=== PATIENT | female | born 1990 | race African-American/Black ===

== ENCOUNTER 2016-10-13 13:26 | Emergency (ER) | payer SELFPAY ==
[2016-10-13 13:36] VITALS: BMI 42.3
[2016-10-13 13:37] VITALS: TEMP 98.3
--- NOTE | 2016-10-13 13:38 | PDOC ---
History of Present Illness - General Stated Complaint: SYNCOPY Time Seen by Provider: 10/13/16 13:30 History Source: Patient - History of Present Illness Timing/Duration: other (this am) Severity: severe Associated Symptoms: reports: headaches. denies: cough, diaphoresis, fever/ chills, loss of appetite, nausea/vomiting, shortness of breath Past History - Past Medical History Allergies/Adverse Reactions: Allergies Allergy/AdvReac Type Severity Reaction Status Date / Time GUARDASIL Allergy Intermediate Swelling Uncoded 10/13/16 13:36 Review of Systems - Review of Systems Constitutional: No: Chills, Fever HEENTM: No: Blurred Vision Respiratory: No: Shortness of Breath Cardiac (ROS): Yes: Lightheadedness. No: Chest Pain, Palpitations ABD/GI: No: Nausea, Vomiting *Physical Exam - Physical Exam General Appearance: Yes: Appropriately Dressed. No: Apparent Distress HEENT: positive: Normal Voice. negative: Scleral Icterus (R), Scleral Icterus ( L) Neck: positive: Supple Respiratory/Chest: positive: Lungs Clear, Normal Breath Sounds. negative: Respiratory Distress Cardiovascular: positive: Regular Rate, S1, S2 Gastrointestinal/Abdominal: positive: Soft. negative: Tender Extremity: positive: Normal Inspection Integumentary: positive: Dry, Warm Neurologic: positive: Fully Oriented, Alert, Normal Mood/Affect Heart Score/ECG Review - ECG Intrepretation Comment:: 10/13/16 13:48 Twelve-lead EKG was performed and reviewed by me. There is normal sinus rhythm with a normal rate. The axis is normal. The intervals are normal. There are no ST or T wave abnormalities. Impression: Normal twelve-lead EKG ED Treatment Course - LABORATORY CBC & Chemistry Diagram: 10/13/16 14:25 10/13/16 14:25 Medical Decision Making - Medical Decision Making 10/13/16 13:36 26-year-old female, morbidly obese, with insulin-dependent diabetes, PCOS, migraines, here with dizziness with near syncope. Patient states while at her nephew's christening this morning and sitting down, she became lightheaded and felt like she was in a pass out, so came directly to the ED. Feels better now but reports a slight headache. No visual changes, nausea, vomiting, chest pain or shortness of breath. Patient admits that she did not anything to eat this a.m. See exam Near syncope Since improved Stable w/ unremarkable exam Possibly hypoglycemia in setting of IDDM and no po intake today, less likely cardiac or neuro, will r/o preg -FS -EKG -labs -IVF -reassess 10/13/16 15:037 Labs and EKG unremarkable. Pt remained stable in ED and feels well enough to go home. Instructed to make sure that she maintains adequate nutrition, especially in the setting of insulin use. Return precautions given. 10/13/16 15:37 *DC/Admit/Observation/Transfer Diagnosis at time of Disposition: Near syncope, Dizziness - Discharge Dispostion Disposition: HOME Condition at time of disposition: Improved - Patient Instructions Printed Discharge Instructions: DI for Syncope in Adults (Fainting) Additional Instructions: The cause of your symptoms are unclear, but possibly due to low blood sugar. Maintain adequate nutrition, especially since you are on insulin. If symptoms recur and/or worsen, return to ED immediately. Otherwise follow-up with your PMD
--- NOTE | 2016-10-13 14:03 | PDOC ---
*Physical Exam - Vital Signs Last Vital Signs Temp Pulse Resp BP Pulse Ox 98.3 F 87 18 117/84 99 10/13/16 13:28 10/13/16 13:28 10/13/16 13:28 10/13/16 13:28 10/13/16 13:28 ED Treatment Course - LABORATORY CBC & Chemistry Diagram: 10/13/16 14:25 10/13/16 14:25 Medical Decision Making - Medical Decision Making 10/13/16 14:02 Pt seen by the Advanced Practice Provider under my direct supervision Ancillary studies reviewed I agree with plan as outlined by the Advanced Practice Provider KATI Dial *DC/Admit/Observation/Transfer Diagnosis at time of Disposition: Near syncope, Dizziness - Discharge Dispostion Disposition: HOME Condition at time of disposition: Improved - Patient Instructions Printed Discharge Instructions: DI for Syncope in Adults (Fainting) Additional Instructions: The cause of your symptoms are unclear, but possibly due to low blood sugar. Maintain adequate nutrition, especially since you are on insulin. If symptoms recur and/or worsen, return to ED immediately. Otherwise follow-up with your PMD
[2016-10-13] MEDS ORDERED: SODIUM CHLORIDE 1,000 ML IV STA (14:18)
[2016-10-13 14:38] LABS: BASOPHIL 0.4 % (0-2.0); EOSINOPHIL 0.6 % (0-4.5); MCH 24.3 pg (25.7-33.7); MCHC 31.3 g/dl (32.0-36.0); MEAN CELL VOLUME 77.5 fl (80-96); MEAN PLT VOLUME 7.5 fl (7.5-11.1); NEUTROPHILS 69.2 % (42.8-82.8); PLATELET COUNT 373 K/MM3 (134-434); RDW 16.1 % (11.6-15.6); WHITE BLOOD COUNT 7.9 K/mm3 (4.0-10.0)
[2016-10-13 14:53] LABS: ALBUMIN 3.7 g/dl (3.4-5.0); ANION GAP 11 (8-16); BILIRUBIN,TOTAL 0.3 mg/dL (0.2-1.0); CALCIUM 8.8 mg/dL (8.5-10.1); CO2 23 mmol/L (21-32); CREATININE 0.9 mg/dL (0.55-1.02); GLUCOSE,RANDOM 87 mg/dL (74-106); SGOT/AST 11 U/L (15-37); SGPT/ALT 19 U/L (12-78); TOT PROT 7.7 g/dl (6.4-8.2)
[2016-10-13 14:54] LABS: ALK PHOS 73 U/L (45-117)
[2016-10-13 15:56] VITALS: BP 123/69; PULSE 90
--- NOTE | 2016-10-14 09:28 | EKG ---
Test Reason : Blood Pressure : / mmHG Vent. Rate : 092 BPM Atrial Rate : 092 BPM P-R Int : 156 ms QRS Dur : 090 ms QT Int : 348 ms P-R-T Axes : 051 035 027 degrees QTc Int : 430 ms NORMAL SINUS RHYTHM NORMAL ECG NO PREVIOUS ECGS AVAILABLE Confirmed by ISABEL HENDRICKSON MD ([id number]) on 10/14/2016 9:27:32 AM Referred By: Confirmed By:ISABEL HENDRICKSON MD
== END 2016-10-13 15:56 | disposition home or self-care (01) ==
LOC: JER 13:26
PROC: 3E0337Z Introduction of Electrolytic and Water Balance Substance into Peripheral Vein, Percutaneous Approach (ICD-10-PCS; principal; 2016-10-13)
DX: R55 Syncope and collapse (principal); R42 Dizziness and giddiness; E66.01 Morbid (severe) obesity due to excess calories; Z68.41 Body mass index [BMI] 40.0-44.9, adult; E11.9 Type 2 diabetes mellitus without complications; E28.2 Polycystic ovarian syndrome
CPT/HCPCS: 36415; 80053; 84703; 85025; 93005; 93010; 99282-25